=== PATIENT | female | born 1995 | race Caucasian/White ===

== ENCOUNTER 2017-03-12 01:51 | Emergency (ER) | payer MEDICAID ==
[2017-03-12 02:00] VITALS: BMI 22.3
[2017-03-12 02:14] VITALS: RESP 16; O2SAT 100
[2017-03-12] MEDS ORDERED: Sodium Chloride 0.9% 1,000 ML IV STA (02:22)
[2017-03-12] MEDS ORDERED: Alum-Mag Hydrox-Simethicone Susp (30 mL) PO STA (02:22)
--- NOTE | 2017-03-12 02:30 | ED PDOC ---
Arrival/HPI - General Chief Complaint: GI Problem Time Seen by Provider: 03/12/17 01:54 Historian: Patient, Other (Friends) - History of Present Illness Narrative History of Present Illness (Text): 03/12/17 02:22 21 year old female who denies any past medical history and has NKDA, presents to the emergency department complaining of epigastric abdominal pain that began 1-2 hours ago. Patient's friends reported she was wearing light clothes out and did not eat today. Patient reports nausea and vomiting(x1), but denies any fever , dysuria, diarrhea, stool change, or any other complaints. Time/Duration: Other (1-2 hours) Symptom Onset: Sudden Symptom Course: Unchanged Activities at Onset: Light Context: Home Past Medical History - Provider Review Nursing Documentation Reviewed: Yes - Psychiatric Hx Substance Use: No - Anesthesia Hx Anesthesia: No Family/Social History - Physician Review Nursing Documentation Reviewed: Yes Family/Social History: No Known Family HX Smoking Status: Never Smoked Hx Alcohol Use: Yes Frequency of alcohol use: Socially Hx Substance Use: No Allergies/Home Meds Allergies/Adverse Reactions: Allergies No Known Allergies Allergy (Verified 03/12/17 02:05) Review of Systems - Physician Review All systems were reviewed & negative as marked: Yes - Review of Systems Constitutional: absent: Fevers Gastrointestinal: Abdominal Pain, Nausea, Vomiting. absent: Stool Changes, Diarrhea Genitourinary Female: absent: Dysuria Physical Exam - Physical Exam Narrative Physical Exam (Text): Constitutional: No acute distress. Head: Normocephalic. Atraumatic. Eyes: PERRL. ENT: Moist mucous membranes. Neck: Supple. Cardiovascular: Regular rate. Chest: No tenderness. Respiratory: Clear to auscultation bilaterally. GI: Soft. Epigastric tenderness. No rebound. No guarding. Nondistended. Back: No CVA tenderness. Musculoskeletal: No tenderness or swelling of extremities. Skin: No rash. Neurologic: Alert, no focal deficit. Vital Signs Reviewed: Yes Vital Signs Temp Pulse Resp BP Pulse Ox 03/12/17 04:31 98.6 F 81 16 119/74 100 03/12/17 02:14 96.4 F L 85 16 128/77 100 Temperature: Afebrile Blood Pressure: Normal Pulse: Regular Respiratory Rate: Normal Appearance: Positive for: Well-Appearing, Non-Toxic Pain Distress: None Mental Status: Positive for: Alert and Oriented X 3 Medical Decision Making ED Course and Treatment: 03/12/17 02:23 Plan: -- Labs -- Maalox -- Pepcid -- IV Fluids -- Zofran Inj -- Urinalysis -- Reassess and disposition Progress Notes: 03/12/17 05:30 Patient states she feels better. Mother wishes to take patient home. Friends at bedside tell me in private that patient drank alcohol for the first time tonight. They suspect that she is drunk, but patient is not willing to disclose this to mother. Discharged home, informed they may return to ED at any time for worsening pain, fever, vomiting, or concern for anything. - Lab Interpretations Lab Results: 03/12/17 02:45 03/12/17 02:45 Lab Results 03/12/17 03:15: Urine Color Yellow, Urine Appearance Clear, Urine pH 6.0, Ur Specific [place] 1.020, Urine Protein Negative, Urine Glucose (UA) Negative, Urine Ketones Negative, Urine Blood Moderate H, Urine Nitrate Negative, Urine Bilirubin Negative, Urine Urobilinogen 0.2, Ur Leukocyte Esterase Negative, Urine RBC 5 - 10, Urine WBC 2 - 5, Ur Epithelial Cells 1 - 3, Urine Bacteria Many, Urine Other Fiber, Urine HCG, Qual Negative 03/12/17 02:45: Sodium 143, Potassium 3.5 L, Chloride 108 H, Carbon Dioxide 23, Anion Gap 16, BUN 9, Creatinine 0.5 L, Est GFR ( Amer) > 60, Est GFR (Non -Af Amer) > 60, Random Glucose 108, Calcium 9.7, Total Bilirubin 0.4, AST 16, ALT 30, Alkaline Phosphatase 60, Total Protein 7.8, Albumin 4.4, Globulin 3.4, Albumin/Globulin Ratio 1.3, Lipase 31 03/12/17 02:45: WBC 8.7, RBC 4.75, Hgb 13.7, Hct 38.4, MCV 80.8, MCH 28.8, MCHC 35.7, RDW 13.7, Plt Count 300, MPV 9.4, Gran % 67.0, Lymph % (Auto) 26.2, [place] % (Auto) 6.3 H, Eos % (Auto) 0.3 L, Baso % (Auto) 0.2, Gran # 5.83, Lymph # 2.3 , [place] # 0.6, Eos # 0.0, Baso # 0.02 I have reviewed the lab results: Yes - Medication Orders Current Medication Orders: Discontinued Medications Al Hydrox/Mg Hydrox/Simethicone (Maalox Plus 30 Ml) 30 ml PO STAT STA Stop: 03/12/17 02:23 Last Admin: 03/12/17 02:45 Dose: 30 ml Famotidine (Pepcid) 20 mg IVP STAT STA Stop: 03/12/17 02:23 Last Admin: 03/12/17 02:45 Dose: 20 mg IVP Administration Document 03/12/17 02:45 EQ (Rec: 03/12/17 03:29 EQ [id number]) Charges for Administration # of IVP Administrations 1 Sodium Chloride (Sodium Chloride 0.9%) 1,000 mls @ 999 mls/hr IV .Q1H1M STA Stop: 03/12/17 03:22 Last Admin: 03/12/17 02:45 Dose: 999 mls/hr eMAR Start Stop Document 03/12/17 02:45 EQ (Rec: 03/12/17 03:30 EQ [id number]) Intravenous Solution Start Date 03/12/17 Start Time 02:45 Ondansetron HCl (Zofran Inj) 8 mg IVP STAT STA Stop: 03/12/17 02:23 Last Admin: 03/12/17 02:45 Dose: 8 mg IVP Administration Document 03/12/17 02:45 EQ (Rec: 03/12/17 03:30 EQ [id number]) Charges for Administration # of IVP Administrations 1 - Scribe Statement The provider has reviewed the documentation as recorded by the Medhat Guadarrama Provider Scribe Attestation: All medical record entries made by the Medhat were at my direction and personally dictated by me. I have reviewed the chart and agree that the record accurately reflects my personal performance of the history, physical exam, medical decision making, and the department course for this patient. I have also personally directed, reviewed, and agree with the discharge instructions and disposition. Disposition/Present on Arrival - Present on Arrival Any Indicators Present on Arrival: No History of DVT/PE: No History of Uncontrolled Diabetes: No Urinary Catheter: No History of Decub. Ulcer: No History Surgical Site Infection Following: None - Disposition Have Diagnosis and Disposition been Completed?: Yes Diagnosis: Abdominal pain Disposition: HOME/ ROUTINE Disposition Time: 04:21 Patient Plan: Discharge Condition: STABLE Discharge Instructions (ExitCare): Abdominal Pain (ED) Prescriptions: Ondansetron ODT [Zofran ODT] 4 mg PO Q8 #12 odt Forms: [employer] ([place]), SCHOOL NOTE
[2017-03-12 03:05] LABS: BASO # 0.02 K/mm3 (0.0-2.0); BASO % 0.2 % (0.0-3.0); EOS % 0.3 % (1.5-5.0); GRAN # 5.83 (1.4-6.5); HEMATOCRIT 38.4 % (36.0-48.0); LYMPH # 2.3 (1.2-3.4); LYMPH % 26.2 % (22.0-35.0); MEAN CELL VOLUME 80.8 fl (80.0-105.0); MEAN CORPUSCULAR HEMOGLOBIN 28.8 pg (25.0-35.0); MEAN CORPUSCULAR HGB CONC 35.7 g/dl (31.0-37.0); MEAN PLATELET VOLUME 9.4 fl (7.0-11.0); MONO # 0.6 (0.1-0.6); MONO % 6.3 % (1.0-6.0); RED CELL DISTRIBUTION WIDTH 13.7 % (11.5-14.5); WHITE BLOOD COUNT 8.7 10^3/ul (4.5-11.0)
[2017-03-12 03:10] LABS: ALB/GLOB RATIO 1.3 (1.1-1.8); ALKALINE PHOSPHATASE 60 U/L (38-126); ALT/SGPT 30 U/L (7-56); AST/SGOT 16 U/L (14-36); BILIRUBIN,TOTAL 0.4 mg/dL (0.2-1.3); BLOOD UREA NITROGEN 9 mg/dL (7-21); CALCIUM 9.7 mg/dL (8.4-10.5); CARBON DIOXIDE 23 mmol/L (21-33); CHLORIDE 108 mmol/L (98-107); GFR AFRICAN-AMERICAN > 60; GLUCOSE,RANDOM 108 mg/dL (70-110); LIPASE 31 U/L (23-300); POTASSIUM 3.5 mmol/L (3.6-5.0); SODIUM 143 mmol/L (132-148); TOTAL PROTEIN 7.8 g/dL (5.8-8.3)
[2017-03-12 03:37] LABS: URINE BILIRUBIN NEGATIVE (NEGATIVE); URINE BLOOD MODERATE (NEGATIVE); URINE GLUCOSE (UA) NEGATIVE (NEGATIVE); URINE KETONE NEGATIVE (NEGATIVE); URINE LEUKOCYTE ESTERASE NEGATIVE Leu/uL (NEGATIVE); URINE PROTEIN NEGATIVE mg/dL (<30 mg/dL); URINE UROBILINOGEN 0.2 E.U./dL (<1 E.U./dL)
[2017-03-12 03:38] LABS: URINE APPEARANCE CLEAR (CLEAR); URINE COLOR YELLOW (YELLOW)
[2017-03-12 04:08] LABS: URINE BACTERIA MANY (NEG)
[2017-03-12 04:32] VITALS: BP 119/74; PULSE 81; TEMP 98.6
== END 2017-03-12 04:31 | disposition home or self-care (01) ==
LOC: ED 01:51
DX: R10.13 Epigastric pain (principal)
CPT/HCPCS: 80053; 81001; 83690; 84703; 85025; 96374; 96375; 99284; J2405; J7040